=== PATIENT | male | born 1990 | race Caucasian/White ===

== ENCOUNTER 2017-01-18 08:51 | Emergency (ER) | payer BC, OTHER ==
[~2017-01-18] VITALS: Ht 170.2 cm; Wt 74.0 kg
[2017-01-18 08:56] VITALS: Ht 170.2 cm; Wt 74.0 kg
[2017-01-18] MEDS ORDERED: IBUP-1542 PO (11:40)
--- NOTE | 2017-01-18 11:41 | RADRPT ---
PROCEDURE: Left ankle series. CLINICAL INDICATION: Left ankle pain after trauma TECHNIQUE: Three views of the left ankle were performed. COMPARISON: None. FINDINGS: There is normal mineralization and alignment of the bones of the left ankle. There is a minimally d isplaced fracture of the medial malleolus. No other definitive fracture or dislocation is seen.. J oint spaces are well maintained. No osteophytes or erosions are identified. No joint effusion is id entified. There is mild diffuse soft tissue swelling. IMPRESSION: 1. Minimally displaced medial malleolar fracture. Recommend dedicated left tib-fib series to exclu de proximal fibular fracture. 2. Soft tissue swelling. RPTAT: KK .Malcolm Vásquez MD, MD Date Time Electronically viewed and signed by .Malcolm Vásquez MD, on 01/18/2017 11:41 .B/
--- NOTE | 2017-01-18 11:43 | ERD ---
ER Documentation Chief Complaint Date/Time DATE: 01/18/17 TIME: 11:42 Chief Complaint left ankle pain/injury HPI This 26-year-old male presents with left ankle pain and bruising after twisting it playing basketball 2 days ago. He has restricted range of motion due to pain but no weakness. He denies fevers, redness, bleeding. ROS All systems reviewed and are negative except as per history of present illness. Medications Home Meds Active Scripts Ibuprofen* (Motrin*) 600 Mg Tab, 600 MG PO Q6, #20 TAB Prov:MERRY CHOI MD 01/18/17 Allergies Allergies: Coded Allergies: No Known Drug Allergies (Verified Allergy, 02/14/12) PMhx/Soc History of Surgery: Yes (TONSILLECTOMY) Anesthesia Reaction: No Hx Neurological Disorder: No Hx Respiratory Disorders: No Hx Cardiac Disorders: No Hx Psychiatric Problems: No Hx Miscellaneous Medical Probl: No Hx Alcohol Use: No Hx Substance Use: No Hx Tobacco Use: No Physical Exam Vitals Vital Signs Date Time Temp Pulse Resp B/P Pulse Ox O2 Delivery O2 Flow Rate FiO2 01/18/17 08:56 98.8 61 19 130/70 98 Physical Exam Const: [] Alert, [id number] per Head: Atraumatic Eyes: Normal Conjunctiva ENT: Normal External Ears, Nose and Mouth. Neck: Full range of motion..~ No meningismus. Resp: Clear to auscultation bilaterally Cardio: Regular rate and rhythm, no murmurs Abd: Soft, non tender, non distended. Normal bowel sounds Skin: No petechiae or rashes Back: No midline or flank tenderness Ext: No cyanosis, or edema producing tenderness, swelling and ecchymosis around the left ankle joint with the most tenderness being at the medial malleolus. There is no appreciable deformities. There is no appreciable foot metatarsal tenderness. There is no bleeding, erythema or lacerations. Neur: Awake and alert Psych: Normal Mood and Affect Results 24 hrs Current Medications Medications (Trade) Dose Ordered Sig/Nelson Route PRN Reason Start Time Stop Time Status Last Admin Dose Admin Ibuprofen (Motrin) 600 mg ONCE ONCE PO 01/18/17 12:00 01/18/17 12:01 01/18/17 11:44 Procedures/MDM X-ray Ankle 3V Interpreted by me: Bones: There is nondisplaced medial malleolus fracture. Joints: No dislocation. Impression-nondisplaced medial malleolar fracture X-ray left Tib/Fib 2V Interpreted by me: Bones: Nondisplaced distal tibia fracture Joints: No dislocation Foreign body: None. Impression-nondisplaced distal tibia fracture of the medial malleolus without proximal fibula fracture Patient was placed in left short leg splint. Splint Assessment: Neurovascularly intact post splint placement with good fit. Patient was also given crutches with crutch training given ibuprofen for pain. Patient presents with a closed left ankle fracture without evidence of neurovascular compromise, tendon or neurologic deficit or bacterial infection and will be referred to orthopedics for further evaluation this week. Patient was advised he may need authorization from primary care doctor. Patient was advised to return sooner for fevers, redness, new or worsening symptoms. Departure Diagnosis: Primary Impression: Ankle fracture Encounter type: initial encounter Fracture type: closed Laterality: left Qualified Code: S82.892A - Ankle fracture, left, closed, initial encounter Condition: Stable Patient Instructions: Fracture, Ankle (General) Referrals: NROIS BROWNING MD [facility] Hours: Mon-Fri 9:00 AM - 5:00 PM Additional Instructions: See orthopedist within the next week for further evaluation. May need authorization for primary care doctor for orthopedist visit. MERRY CHOI MD Jan 18, 2017 11:43
[2017-01-18] MEDS ORDERED: IBUPROFEN 600 MG TAB PO ONE (12:00)
--- NOTE | 2017-01-18 12:19 | RADRPT ---
PROCEDURE: XR Left Tibia and Fibula. CLINICAL INDICATION: Trauma. Left lower leg pain. TECHNIQUE: Two views. Frontal and lateral. COMPARISON: No prior studies are available for comparison. FINDINGS: There is an acute minimally displaced oblique fracture of the medial malleolus. There is no other f racture and there is no dislocation. There is soft tissue swelling overlying the medial malleolus fracture. Articular surfaces are intact. There is no lytic or blastic lesion. There is no radiopaque foreign body. IMPRESSION: 1. Acute minimally displaced oblique fracture of the medial malleolus with overlying soft tissue sw elling. 2. Otherwise normal images of the left tibia and fibula. RPTAT: QQ .Luis Gardner MD, MD Date Time Electronically viewed and signed by .Luis Gardner MD, on 01/18/2017 12:19 .R/
[2017-01-18 12:23] VITALS: BP 127/68; PULSE 69; RESP 18; TEMP 98.2
== END 2017-01-18 12:24 | disposition home or self-care (01) ==
LOC: FTE 08:51
DX: S82.55XA Nondisplaced fracture of medial malleolus of left tibia, initial encounter for closed fracture (principal); X50.1XXA Overexertion from prolonged static or awkward postures, initial encounter; Y92.9 Unspecified place or not applicable
CPT/HCPCS: 73590; 73610

== ENCOUNTER 2017-04-28 11:33 | Emergency (ER) | payer BC, OTHER ==
[~2017-04-28] VITALS: Ht 152.4 cm; Wt 74.0 kg
[~2017-04-28 11:33] MED LIST: IBUP-1542 PO
[2017-04-28 11:35] VITALS: Ht 152.4 cm; Wt 74.0 kg
[2017-04-28] MEDS ORDERED: ALBUTEROL 0.083% (NEB) 2.5 MG/3 ML AMP NEB STA (12:14)
[2017-04-28] MEDS ORDERED: IPRATROPIUM (NEB) 0.5 MG/2.5 ML AMP NEB STA (12:14)
--- NOTE | 2017-04-28 12:47 | ERD ---
ER Documentation Chief Complaint Date/Time DATE: 04/28/17 TIME: 12:43 Chief Complaint Patient omplains of chest pain HPI This is a 26-year-old male who presents the emergency department today complaining of some chest pain and cough for the past week. Patient states he has pain with deep inspiration. States he saw his primary care doctor yesterday and was given his medication for his cough. Denies any foreign travel , leg pain. States he is unsure if he had a fever. ROS All systems reviewed and are negative except as per history of present illness. Medications Home Meds Active Scripts Ibuprofen* (Motrin*) 600 Mg Tab, 600 MG PO Q6, #20 TAB Prov:MERRY CHOI MD 01/18/17 Allergies Allergies: Coded Allergies: No Known Drug Allergies (Verified Allergy, 02/14/12) PMhx/Soc History of Surgery: Yes (TONSILLECTOMY, RIGHT HAND PINKY FINGER SX) Anesthesia Reaction: No Hx Neurological Disorder: No Hx Respiratory Disorders: No Hx Cardiac Disorders: No Hx Psychiatric Problems: No Hx Miscellaneous Medical Probl: No Hx Alcohol Use: Yes (OCCASSIONAL DURING WEEKENDS ONLY ) Hx Substance Use: No Hx Tobacco Use: No Smoking Status: Never smoker Physical Exam Vitals Vital Signs Date Time Temp Pulse Resp B/P Pulse Ox O2 Delivery O2 Flow Rate FiO2 04/28/17 12:47 82 17 95 21 04/28/17 11:35 98.3 85 20 126/72 94 Physical Exam Const: No acute distress Head: Atraumatic Eyes: Normal Conjunctiva ENT: Normal External Ears, Nose and Mouth. Neck: Full range of motion..~ No meningismus. Resp: Mild faint expiratory wheezing and lower lung bases bilaterally. Cardio: Regular rate and rhythm, no murmurs Skin: No petechiae or rashes Back: No midline or flank tenderness Ext: No cyanosis, or edema Neur: Awake and alert Psych: Normal Mood and Affect Results 24 hrs Current Medications Medications (Trade) Dose Ordered Sig/Nelson Route PRN Reason Start Time Stop Time Status Last Admin Dose Admin Albuterol (Proventil 0.083% (Neb)) 5 mg ONCE STAT NEB 04/28/17 12:14 04/28/17 12:16 DC 04/28/17 12:45 Ipratropium [place] (Atrovent 0.02% (Neb)) 0.5 mg ONCE STAT NEB 04/28/17 12:14 04/28/17 12:16 DC 04/28/17 12:45 Prednisone (Prednisone) 60 mg ONCE ONCE PO 04/28/17 13:30 04/28/17 13:31 DIAGNOSTIC IMAGING REPORT Patient: SOTERO AVILA : 1990 Age: 26 Sex: M MR #: [id number] DOS: 04/28/17 1214 Ordering MD: CARMINA OLIVA PA-C Location: [facility] Room/Bed: PROCEDURE: XR Chest PA CLINICAL INDICATION: Asthma exacerbation TECHNIQUE: An PA radiograph of the chest was submitted. COMPARISON: None. FINDINGS: Support Hardware: None Cardiovascular: The cardiovascular silhouette appears unremarkable. Lung [place]: Air space opacities are seen within the left lower lung zone. The right lung is clear. Pleural Spaces: No pneumothorax or pleural effusion is identified. Osseous Structures: The osseous structures appear intact. Soft Tissues: The soft tissues appear unremarkable. IMPRESSION: 1. Airspace opacities are seen within the left lower lung zone. This may represent pneumonia. 2. Otherwise, unremarkable PA chest. Physician Gilda Date Time Electronically viewed and signed by Physician Gilda on 04/28/2017 13:04 RH/ CC: CARMINA OLIVA PA-C Procedures/MDM This is a 26-year-old male who presents the emergency department today for further evaluation of a cough and some chest wall pain for the past week. Patient is afebrile and otherwise well-appearing his oxygen saturation is 94%. I did obtain an EKG and chest x-ray give the patient a breathing treatment given patient's physical exam EKG read and interpreted by Dr. Marie rate [address] elevation. No QT prolongation. Normal sinus rhythm. Low suspicion for acute [place], PE, pericarditis Chest x-ray shows airspace opacity seen within the left lower lung zone. May represent pneumonia. Patient will begin a prescription for azithromycin, ProAir inhaler At this time the patient is stable for discharge and outpatient management. Patient should follow up with their PCP in the next 1-2 days. They may return to the emergency department sooner for any persistent or worsening of symptoms. Patient understood and agreed with the plan. CARMINA OLIVA PA-C Apr 28, 2017 12:47
--- NOTE | 2017-04-28 13:05 | RADRPT ---
PROCEDURE: XR Chest PA CLINICAL INDICATION: Asthma exacerbation TECHNIQUE: An PA radiograph of the chest was submitted. COMPARISON: None. FINDINGS: Support Hardware: None Cardiovascular: The cardiovascular silhouette appears unremarkable. Lung [place]: Air space opacities are seen within the left lower lung zone. The right lung is clear. Pleural Spaces: No pneumothorax or pleural effusion is identified. Osseous Structures: The osseous structures appear intact. Soft Tissues: The soft tissues appear unremarkable. IMPRESSION: 1. Airspace opacities are seen within the left lower lung zone. This may represent pneumonia. 2. Otherwise, unremarkable PA chest. Physician Gilda Date Time Electronically viewed and signed by Physician Gilda on 04/28/2017 13:04 /
[2017-04-28] MEDS ORDERED: ALBU8.5H3 INH (13:23)
[2017-04-28] MEDS ORDERED: AZIT250T94 PO (13:23)
[2017-04-28] MEDS ORDERED: predniSONE 20 MG TAB PO ONE (13:30)
[2017-04-28 13:36] VITALS: BP 118/65; PULSE 75; RESP 19; TEMP 98.2
== END 2017-04-28 13:36 | disposition home or self-care (01) ==
LOC: FTE 11:33
DX: R07.89 Other chest pain (principal); R05 Cough
CPT/HCPCS: 71010; 93005; 94664